=== PATIENT | female | born 1960 | race Caucasian/White ===

== ENCOUNTER 2019-11-15 16:40 | Emergency (ER) | payer OTHER ==
[~2019-11-15] VITALS: Ht 170.2 cm; Wt 63.5 kg
[2019-11-15 17:26] LABS: Basophils # (auto) 0.1 10 ^3/uL (0-0.2); Basophils % (auto) 0.6 % (0.0-2.0); Eosinophils # (auto) 0.1 10 ^3/uL (0-0.8); Eosinophils % (auto) 0.9 % (0.0-7.0); Hematocrit 41.8 % (36.0-46.0); Hemoglobin 14.4 g/dL (12.2-16.2); Lymphocytes # (auto) 1.8 10 ^3/uL (0.4-5.4); Lymphocytes % (auto) 21.4 % (10.0-50.0); Mean Corpuscular Hgb Conc. 34.5 g/dL (32.0-36.0); Mean Corpuscular Volume 92.8 fL (80.0-100.0); Monocytes # (auto) 0.6 10 ^3/uL (0-1.3); Monocytes % (auto) 7.4 % (0.0-12.0); Neutrophils % (auto) 69.7 % (37.0-80.0); Nucleated Red Blood Cells % 0.1 %; Platelet Count (auto) 399 10^3/uL (140-450); Red Blood Cells 4.51 10^6/uL (4.0-5.20); Red Cell Distribution Width 12.2 % (11.8-14.3); White Blood Cell 8.6 10^3/uL (4.4-10.8)
[2019-11-15 17:34] LABS: Albumin 3.9 g/dL (3.4-5.0); Anion Gap 9 (5-15); Blood Urea Nitrogen 8 mg/dL (7-18); Calcium 8.6 mg/dL (8.5-10.1); Carbon Dioxide 25 mmol/L (21-32); Chloride 97 mmol/L (98-107); Glucose 101 mg/dL (74-106); Potassium 3.3 mmol/L (3.5-5.1); Sodium 131 mmol/L (136-145)
[2019-11-15 17:39] LABS: Alanine Aminotransferase 25 U/L (13-56); Alkaline Phosphatase 97 U/L (45-117); Aspartate Aminotransferase 17 U/L (15-37); BUN/Creatinine Ratio 10.3; Bilirubin, Total 0.4 mg/dL (0.2-1.0); GFR African American 97 mL/min; GFR Non-African American 80 mL/min; Total Protein 7.4 g/dL (6.4-8.2)
[2019-11-15 18:28] VITALS: BP 150/78
[2019-11-15] MEDS ORDERED: POTASSIUM CHL 20 Meq TABLET PO ONE (18:30)
== END 2019-11-15 18:30 | disposition home or self-care (01) ==
LOC: ER 16:40
DX: R07.89 Other chest pain (principal); E87.6 Hypokalemia
CPT/HCPCS: 36415; 71046; 80053; 84484; 85025; 85379; 93005

== ENCOUNTER 2025-05-09 14:01 | Emergency (ER) | payer MEDICARE, OTHER ==
[~2025-05-09] VITALS: Ht 170.2 cm; Wt 74.0 kg
[2025-05-09 14:08] VITALS: BP 171/103; PULSE 80; RESP 18; TEMP 98.6; O2SAT 99
== END 2025-05-09 14:38 | disposition left against medical advice (07) ==
LOC: ER 14:01
DX: I10 Essential (primary) hypertension (principal)